=== PATIENT | female | born 1950 | race Caucasian/White ===

== ENCOUNTER → 2020-01-26 | Outpatient (CLI) | payer MEDICARE ==
--- NOTE | 2020-01-26 16:30 | Diagnostic Imaging Report ---
EXAMINATION: Magnetic resonance imaging of the left shoulder without contrast. DATE: January 26, 2020. COMPARISON: None. HISTORY: 69-year-old female, worsening chronic left shoulder pain. TECHNIQUE: Magnetic Resonance Imaging sequences were performed of the shoulder without contrast. FINDINGS: ROTATOR CUFF, LIGAMENTS, TENDONS, AND MUSCLES: There is thinning of the supraspinatus tendon. There is tendinopathy of subscapularis. The infraspinatus and teres minor tendons are intact. There is normal rotator cuff muscle bulk and signal. LONG HEAD OF BICEPS: The biceps labral attachment and long head of the biceps tendon is intact. The long head of the biceps tendon is normally positioned within the bicipital groove. GLENOHUMERAL JOINT: The humeral head is well positioned relative to the glenoid. There is blunting of the labrum. There is no identified paralabral cyst. There are broad areas of full-thickness glenohumeral joint space loss. There are prominent osteophytes extending off the inferior aspect of the humeral head. There are some areas of subchondral cystic change. There is no large glenohumeral joint effusion. There is no identified intra-articular body or prominent synovitis. ACROMIOCLAVICULAR JOINT: The acromioclavicular joint is normally aligned. The coracoclavicular and coracoacromial ligaments are intact. There are mild acromioclavicular degenerative changes with osteophytes extending approximately 3 mm below the joint margin. BONE: There is no os acromiale. There is no acute fracture, bone contusion or evidence of osteonecrosis. BURSAE AND SOFT TISSUES: The bursae and soft tissue surrounding the shoulder are unremarkable. IMPRESSION: 1. Thinning of the supraspinatus tendon. Subscapularis tendinopathy. Negative for full-thickness rotator cuff tendon tear. No fatty atrophy of the rotator cuff musculature. 2. Mild acromioclavicular degenerative changes with 3 mm undersurface osteophytes. 3. End-stage arthritis of the glenohumeral joint. There is no large glenohumeral joint effusion or prominent synovitis. 4. No acute fracture, bone contusion or evidence of osteonecrosis. Dictated by: Dictated on workstation # [id number]
== END ==
LOC: RAD 11:20
PROVIDERS: ATTEND Nurse Practitioner Family
DX: M19.012 Primary osteoarthritis, left shoulder (principal); G89.29 Other chronic pain; M75.82 Other shoulder lesions, left shoulder
CPT/HCPCS: 73221

== ENCOUNTER → 2020-10-04 | Outpatient (CLI) | payer MEDICARE, OTHER ==
--- NOTE | 2020-10-04 14:42 | Diagnostic Imaging Report ---
PROCEDURE: MRI left upper extremity without contrast. TECHNIQUE: Multiplanar, multisequence non contrast-enhanced MRI of the left shoulder was accomplished. INDICATION: Left shoulder pain. Osteoarthritis. COMPARISON: MRI of the left shoulder from 01/26/2020. FINDINGS: Bones and joints: Severe/end-stage osteoarthritis of glenohumeral joint is again seen with diffuse full-thickness articular cartilage loss throughout the glenohumeral joint. Additionally, there are subchondral cystic change and sclerosis on both sides of the joint. Large marginal osteophyte in the inferior aspect of the humeral head. Macerated tearing of the glenoid labrum is present. Mild osteoarthritis of the acromioclavicular joint is also present. Rotator cuff: There is no fatty infiltration of rotator cuff. Thinning of the supraspinatus and infraspinatus is unchanged. No high-grade partial or full-thickness rotator cuff tear. Subscapularis and teres minor remain intact. Long head of biceps: Long head of biceps is intact but is thinned and likely partially torn at the junction of the intracapsular and extracapsular components. IMPRESSION: 1. No change in end-stage osteoarthritis of the glenohumeral joint. 2. No full-thickness rotator cuff tear or fatty atrophy. Dictated by: Dictated on workstation # [id number]
--- NOTE | 2020-10-04 14:47 | Diagnostic Imaging Report ---
PROCEDURE: MRI right joint upper extremity without contrast. TECHNIQUE: Multiplanar, multisequence non contrast-enhanced MRI of the right upper extremity was accomplished. INDICATION: Bilateral shoulder pain, chronic. COMPARISON: None. FINDINGS: Evaluation is suboptimal due to motion artifact. No acute fracture is seen in the right shoulder. There is severe endstage osteoarthritis in the glenohumeral joint with remodeling of the articular surface, subchondral cystlike change and marginal osteophytes. There is retroversion of the glenoid measuring about 40 degrees. There is a small glenohumeral joint effusion. There are moderate degenerative changes in the acromioclavicular joint. The supraspinatus tendon demonstrates tendinosis with high-grade partial-thickness tearing at the articular surface. This extends into the anterior fibers of the infraspinatus tendon. The subscapularis tendon demonstrates tendinosis with high-grade partial-thickness tearing at the articular surface as well, with mass effect from the anterior glenoid. The teres minor tendon appears to be intact. There may be small full-thickness components in the rotator cuff tears. The long head of the biceps tendon demonstrates partial longitudinal tearing without a complete tear. The glenoid labrum demonstrates extensive degeneration and maceration. No para labral cyst is seen. The acromion has a curved undersurface without hooking. The coracoclavicular and coracoacromial ligaments appear to be intact. There is mild generalized muscular atrophy. Surrounding soft tissues are otherwise unremarkable. IMPRESSION: 1. Severe endstage osteoarthritis in the right glenohumeral joint with marked retroversion of the glenoid. 2. Extensive high-grade partial-thickness tearing in the right rotator cuff with possible small full-thickness components. 3. Partial tearing of the proximal long head of the biceps tendon. 4. Small right shoulder joint effusion. Dictated by: Dictated on workstation # [id number]
== END ==
LOC: RAD 13:15
PROVIDERS: ATTEND Orthopaedic Surgery
DX: S46.111A Strain of muscle, fascia and tendon of long head of biceps, right arm, initial encounter (principal); M75.111 Incomplete rotator cuff tear or rupture of right shoulder, not specified as traumatic; M19.011 Primary osteoarthritis, right shoulder; M19.012 Primary osteoarthritis, left shoulder; X58.XXXA Exposure to other specified factors, initial encounter
CPT/HCPCS: 73221